=== PATIENT | male | born 1970 | race Caucasian/White ===

== ENCOUNTER 2022-11-07 17:05 | Emergency (ER) | payer OTHER, SELFPAY ==
[2022-11-07] VITALS (15 sets, daily range): BP systolic 119–141; BP diastolic 67–83; PULSE 60–72; RESP 12–21; TEMP 36.4; O2SAT 89–96
--- NOTE | ~2022-11-07 | XR_ITS ---
Clinical Indication: Chest pain PA and lateral views of the chest: Comparison: 05/28/2019 Findings: The lungs are clear, without evidence of focal consolidation or pleural effusion. Cardiome diastinal silhouette is within normal limits. Stable calcified right hilar lymph node. Bones and soft tissues are unremarkable. Impression: No acute abnormality. Stable calcified right hilar lymph node. Reviewed, dictated and finalized at location . Impression: No acute abnormality. Stable calcified right hilar lymph node.
--- NOTE | 2022-11-07 17:06 | ECG_ITS ---
Measurements Intervals [place] Rate: 66 P: 37 TX: 141 QRS: -33 QRSD: 94 T: 8 QT: 372 QTc: 390 Interpretive Statements SINUS RHYTHM LEFT AXIS DEVIATION [QRS AXIS < -30] PATTERN CONSISTENT WITH PULMONARY DISEASE ABNORMAL ECG NO PREVIOUS ECG AVAILABLE FOR COMPARISON Electronically Signed On 11-08-2022 10:18:42 CDT by Juan Carlos Dai M.D.
[2022-11-07 17:39] LABS: Basophils Percent Auto 0.4 % (0.2-1.2); Eosinophils Absolute Auto 0.2 K/mm3 (0-0.3); Eosinophils Percent Auto 2.3 % (0-4.4); Hematocrit 42.1 % (42.0-52.0); Hemoglobin 14.3 g/dL (14.0-18.0); Immature Granulocyte Absolute 0.02 K/mm3 (0.00-0.031); Immature Granulocyte Percent A 0.3 % (0-0.5); Lymphocytes Absolute Auto 2.67 K/mm3 (0.9-3.2); Lymphocytes Percent Auto 34.7 % (18.3-44.2); Mean Corpuscular Hemoglobin 32.1 pg (26-34); Mean Corpuscular Volume 94.4 fl (80-100); Mean Platelet Volume 9.7 fl (7.4-10.4); Monocytes Absolute Auto 0.6 K/mm3 (0.1-0.6); Monocytes Percent Auto 7.7 % (2.6-8.5); Neutrophils Absolute Auto 4.2 K/mm3 (1.3-6.7); Neutrophils Percent Auto 54.6 % (45.5-73.1); Platelet Count Result 253 k/mm3 (150-375); Red Blood Count 4.46 M/mm3 (4.6-6.20); Red Cell Distribution Width 12.7 % (11.5-14.5); White Blood Count 7.7 K/mm3 (4.5-10.0)
--- NOTE | 2022-11-07 17:43 | ED.CHESTPAIN ---
HPI - Chest Pain General Chief Complaint: Chest Pain Stated Complaint: L sided chest pain Time Seen by Provider: 11/07/22 17:22 Source: patient Mode of arrival: ambulatory Limitations: no limitations History of Present Illness HPI narrative: This is a 51 year old male with PMHx of depression who presents to the ED with chief complaint of chest pain beginning 2 days ago and worse today. Pt states the pain is in the left chest and radiates to the left shoulder and left neck. Pt states the pain is more constant today so he came in. States the pain came on while he was sitting in his home. No worse with exertion. Reports an episode of feeling clammy and nausea this morning since resolved. Denies LOC, vomiting, SOB, cough, fevers, abdominal pain. Denies any chest pain Hx. Denies any family Hx of major cardiac events. Related Data Allergies Allergy/AdvReac Type Severity Reaction Status Date / Time No Known Allergies Allergy Verified 11/07/22 18:32 Review of Systems Review of Systems: CONSTITUTIONAL: Denies fever, chills, or sweats. EYES: Denies visual changes, redness, or discharge. ENT: Denies rhinorrhea, congestion, sore throat, or otalgia. CARDIOVASCULAR: See HPI RESPIRATORY: Denies cough or dyspnea. GASTROINTESTINAL: Denies abdominal pain, nausea, vomiting, or diarrhea. GENITOURINARY: Denies dysuria or hematuria. SKIN: Denies rash or itching. MUSCULOSKELETAL: Denies back pain, joint pain, or myalgia. NEUROLOGIC: Denies headache, numbness, dizziness, or weakness. PSYCHIATRIC: Denies anxiety or depression. [facility] Past Medical History Medical History Anemia Depression Seasonal allergies Surgical History Surgical History History of appendectomy 01/1991 Family History Family History Grandparent Cerebrovascular accident Family history of congestive heart failure Social History Social History Smoking status: Former smoker Smoking end date: 01/04/02 Alcohol intake: current Drinks per week: 1 Substance use: never Substance use type: does not use Living arrangements: with family Occupation/Education: occupation Gender identity (if verbalized by the patient): Male Sexual Orientation (if Verbalized by the Patient): Straight or Heterosexual Agree to blood products: Yes Exam Narrative: GENERAL: Well-appearing, well-nourished, and in no acute distress. HEAD: Normocephalic, atraumatic. EYES: PERRLA and EOMI. ENT: Nares clear, no rhinorrhea or epistaxis. Mucous membranes moist. Oropharynx without tonsillar hypertrophy exudate or other lesions. NECK: Supple. No adenopathy or masses. CHEST: No respiratory distress. Clear to auscultation. No wheezes rales or rhonchi HEART: Regular rate and rhythm. No murmur heard. Normal peripheral pulses. ABDOMEN: Soft, nontender, nondistended, normal active bowel sounds. MSK: Normal range of motion. No edema. SKIN: Warm, dry, no rash. NEURO: Alert and oriented x3. No focal deficits. PSYCH: Normal mood and affect. Course Course Emergency Course: Patient is declining pain meds at this point. States it is a very low-grade pain and he does not need anything for pain. Vital Signs Vital signs: Vital Signs Temperature 97.5 F L 11/07/22 17:07 Pulse Rate 70 11/07/22 17:07 Respiratory Rate 16 11/07/22 17:07 Blood Pressure 141/70 H 11/07/22 17:07 Pulse Oximetry 95 11/07/22 17:07 Oxygen Delivery Room Air 11/07/22 17:07 Temperature 97.5 F L 11/07/22 17:07 Pulse Rate 66 11/07/22 21:01 Respiratory Rate 17 11/07/22 21:01 Blood Pressure 131/81 11/07/22 21:01 Pulse Oximetry 95 11/07/22 20:47 Oxygen Delivery Room Air 11/07/22 18:09 MDM - Chest Pain MDM Narrative Medical decision making narr
[2022-11-07 17:48] LABS: Alanine Aminotransferase 29 U/L (6-50); Alkaline Phosphatase 78 U/L (38-126); Anion Gap 2 mmol/L (8-16); Aspartate Amino Transferase 30 U/L (17-59); Bilirubin,Total 0.3 mg/dL (0.2-1.3); Blood Urea Nitrogen 24 mg/dL (9-20); Calcium 8.8 mg/dL (8.4-10.2); Carbon Dioxide 33 mmol/L (22-30); Chloride 102 mmol/L (98-107); Estimated CRCL calculation 83 ml/min; Estimated Glomerular Filt Rate 58; Glucose 101 mg/dL (65-110); Lipase 34 U/L (23-300); Potassium 4.1 mmol/L (3.4-5.0); Sodium 137 mmol/L (137-145)
[2022-11-07 17:52] LABS: Prothrombin Time 13.7 Seconds (11.1-14.7)
[2022-11-07 17:53] LABS: Partial Thromboplastin Time 26.3 SECONDS (22.3-36.8)
[2022-11-07 17:55] LABS: D Dimer < 0.27 ug/mL (<0.48)
[2022-11-07 18:00] LABS: Troponin I < 0.012 ng/mL (0.000-0.034)
[2022-11-07] MEDS: ASPIRIN 81 MG CHEWABLE TABLET 324 MG PO (18:01)
--- NOTE | 2022-11-07 19:15 | PC.NURSE ---
This RN assumed care of patient.
[2022-11-07 20:34] LABS: Troponin I < 0.012 ng/mL (0.000-0.034)
== END 2022-11-07 21:23 | disposition home or self-care (01) ==
PROVIDERS: Emergency Medicine; Emergency Provider Physician Assistant; PCP Family Medicine
DX: R07.9 Chest pain, unspecified (principal); Z87.891 Personal history of nicotine dependence
CPT/HCPCS: 36415; 71046; 80053; 83690; 84484; 85025; 85380; 85610; 85730; 93005; 99284; A9270

== ENCOUNTER 2022-12-13 08:44 | Outpatient (CLI) | payer OTHER, SELFPAY ==
--- NOTE | ~2022-12-13 | NM_ITS ---
EXAMINATION: NM stress w perf spect multi DATE: 12/13/2022 11:04 INDICATION: Chest pain TECHNIQUE: Rest images were obtained following intravenous administration of 10.5 mCi Tc99m tetrofosm in (MiCarga). The patient performed an exercise activity. At peak exercise, 33.2 mCi Tc99m tetrofosmi n (AdvanDxview) was administered intravenously, and stress images were obtained. Data was reconstructed i nto short axis and horizontal and vertical long axis SPECT images. Gated SPECT images were also obtai katy. COMPARISON: None. FINDINGS: There is normal left ventricular perfusion without definite evidence of reversible or fixed perfusion abnormality to suggest ischemia or infarction. There is normal left ventricular chamber size, wall motion and ejection fraction. Left ventricular ejection fraction measures >70%. IMPRESSION: 1. Normal myocardial perfusion at rest and during stress. 2. Left ventricular ejection fraction measuring >70%. Reviewed, dictated and finalized at location A.
--- NOTE | 2022-12-13 08:50 | EST_ITS ---
Patient Info Name: Franklyn Buck Age: 52 years : 1970 Gender: Male Ht: 75 in Wt: 250 lbs BSA: 2.48 m2 HR: 68 bpm BP: 125 / 78 mmHg Heart Rhythm: Sinus Rhythm Exam Date: 12/13/2022 9:54 AM Exam Location: [facility] Stress Patient Status: Outpatient Admit Date: 12/13/2022 Staff Ordering Physician: Vida Roslaes MD Attending Provider: Vida Rosales MD Exercise Technologist: Cece Blunt CT Exercise Physician: Lennox Willams DO Exam Type: CA stress test treadmill w NM Study Info Indications R07.89 - Other chest pain A nuclear stress test was performed. Summary 1. 1. Negative Baljinder exercise stress test for ischemic ST changes by ECG criteria. 2. 2. Good functional capacity, achieving 12 METs of workload. 3. 3. Appropriate HR response to exercise. 4. 4. Appropriate HR recovery at 1 minute post exercise. 5. 5. Nuclear scan to follow and will be reported separately. Please correlate with it. 6. 6. Patient informed of the above results. Protocol: Baljinder Stress ECG Details Stage: REST Duration (min): 0 min : 58 sec Speed (mph): 0.0 Grade (%): 0 HR (bpm): 69 SBP (mmHg): 125 DBP (mmHg): 78 METS: --- Stage: REST Duration (min): 5 min : 58 sec Speed (mph): 0.0 Grade (%): 0 HR (bpm): 74 SBP (mmHg): 125 DBP (mmHg): 78 METS: --- Stage: STAGE 1 Duration (min): 1 min : 0 sec Speed (mph): 1.7 Grade (%): 10 HR (bpm): 89 SBP (mmHg): 125 DBP (mmHg): 78 METS: --- Stage: STAGE 1 Duration (min): 2 min : 0 sec Speed (mph): 1.7 Grade (%): 10 HR (bpm): 94 SBP (mmHg): 125 DBP (mmHg): 78 METS: --- Stage: STAGE 1 Duration (min): 3 min : 0 sec Speed (mph): 1.7 Grade (%): 10 HR (bpm): 97 SBP (mmHg): 150 DBP (mmHg): 82 METS: --- Stage: STAGE 2 Duration (min): 1 min : 0 sec Speed (mph): 2.5 Grade (%): 12 HR (bpm): 107 SBP (mmHg): 150 DBP (mmHg): 82 METS: --- Stage: STAGE 2 Duration (min): 2 min : 0 sec Speed (mph): 2.5 Grade (%): 12 HR (bpm): 112 SBP (mmHg): 155 DBP (mmHg): 72 METS: --- Stage: STAGE 2 Duration (min): 3 min : 0 sec Speed (mph): 2.5 Grade (%): 12 HR (bpm): 108 SBP (mmHg): 155 DBP (mmHg): 72 METS: --- Stage: STAGE 3 Duration (min): 1 min : 0 sec Speed (mph): 3.4 Grade (%): 14 HR (bpm): 127 SBP (mmHg): 156 DBP (mmHg): 45 METS: --- Stage: STAGE 3 Duration (min): 2 min : 0 sec Speed (mph): 3.4 Grade (%): 14 HR (bpm): 134 SBP (mmHg): 156 DBP (mmHg): 45 METS: --- Stage: STAGE 3 Duration (min): 3 min : 0 sec Speed (mph): 3.4 Grade (%): 14 HR (bpm): 141 SBP (mmHg): 180 DBP (mmHg): 76 METS: --- Stage: STAGE 4 Duration (min): 1 min : 0 sec Speed (mph): 4.2 Grade (%): 16 HR (bpm): 149 SBP (mmHg): 180 DBP (mmHg): 76 METS: --- Stage: STAGE 4 Duration (min): 1 min : 20 sec Speed (mph): 4.2 Grade (%): 16 HR (bpm): 15
== END 2022-12-13 08:45 | disposition home or self-care (01) ==
PROVIDERS: PCP Family Medicine; Visit Provider Family Medicine
DX: R07.89 Other chest pain (principal)
CPT/HCPCS: 78452; 93017; A9502

== ENCOUNTER 2023-02-17 09:43 | Outpatient (CLI) | payer OTHER, SELFPAY ==
--- NOTE | 2023-03-14 15:24 | WPDSLEEPSTUD ---
Sleep Study Date of Study: 02/17/23 Ordering Provider: Kimberly Marinelli APRN Interpreting Physician: Supriya Sommer DO Sleep Study Type: CPAP Titration Height: 1.91 m Weight: 113.398 kg Body Mass Index: 31.2 Neck Circumference (inches): 16 [place]: 8 Reason for Sleep Study The patient had a sleep study done through his dentist on 09/21/2022 that showed an overall AHI of 22 (CMS guidelines- 4%) and AHI of 34 (AASM guidelines-3%). His lowest oxygen saturation was 70% and he spent 24 minutes, 8% of total monitoring time, with an oxygen saturation below 88%. He prefers to try CPAP over mandibular advancement device. Sleep History The patient is a 52-year-old male that had a sleep study ordered by his primary care to find an optimal PAP setting to treat his sleep apnea. The patient frequently awakens from sleep short of breath. He rarely awakens at night with heartburn, belching or cough. He frequently snores and is frequently loud enough that others complain. He rarely has trouble sleeping when he has a cold. He frequently wakes up gasping for air throughout the night. He frequently has breathing problems at night observed by himself or others. He rarely sweats excessively at night. He rarely has heart palpitations or irregular heartbeats during the night. He rarely falls asleep during the day. He rarely falls asleep while driving. He denies sleep paralysis, cataplexy and hypnagogic / hypnopompic hallucinations. He denies having trouble at school or work due to sleepiness. He denies feeling afraid of going to sleep. He rarely has nightmares. He occasionally remembers his dreams. He rarely has thoughts racing through his mind. He rarely feels sad, depressed or anxious. He occasionally has muscular tension. He rarely notices parts of his body jerk. He rarely kicks during the night. He denies having crawling and aching feelings in his legs and denies having leg pain during the night. He frequently grinds his teeth during sleep per his dentist but denies awakening with morning jaw pain. He denies being bothered by pain during the day. He rarely is awakened by pain during the night. He occasionally wakes up feeling stiff in the morning. He denies waking up with sore or achy muscles. He denies waking up with pain in the neck, spine or other joints. He goes to bed between 11 to 11:30 p.m. on weekdays and between midnight to 12:30 a.m. on the weekends. It takes him less than 10 minutes to fall asleep. He wakes up 1-4 times throughout the night to urinate and is able fall back asleep within 10 minutes. He wakes up at 7:00 a.m. on weekdays and at 9:00 a.m. on the weekends. He typically gets 7 hours of sleep per night. He will stay in bed for 5-30 minutes after waking up in the morning. He currently lives with his . He denies consuming any caffeinated beverages within 2 hours of bedtime. He will engage in physical exercise before bedtime. He will read before falling asleep. He denies watching television before falling asleep. He denies taking naps in the afternoon or the evening. He consumes 3-4 caffeinated beverages per day. He quit smoking cigarettes over 30 years ago. He will consume an alcoholic beverage occasionally. He denies recreational drug use. [facility] Past Medical History Medical History Anemia Depression Seasonal allergies Surgical History Surgical History History of appendectomy 01/1991 Family History Family History Grandparent Cerebrovascular accident Family history of congestive heart failure Social History Social History Smoking status: Former smoker Smoking end date: 01/04/02 Alcohol intake: current Drinks per week: 1 Substance use: never Substance use t
[2023-03-14 15:29] VITALS: BMI 31.2
== END 2023-02-18 07:07 | disposition home or self-care (01) ==
LOC: ANHCSM 09:44
PROVIDERS: PCP Family Medicine; Visit Provider Nurse Practitioner Family
DX: G47.33 Obstructive sleep apnea (adult) (pediatric) (principal)
CPT/HCPCS: 95811

== ENCOUNTER 2024-09-28 15:18 | Emergency (ER) | payer BC, SELFPAY ==
[2024-09-28 15:26] VITALS: BP 122/77; PULSE 69; RESP 16; TEMP 36.6; O2SAT 94
--- NOTE | 2024-09-28 15:44 | ED.URI ---
HPI - URI/Sore Throat General Chief Complaint: Upper Respiratory Infection Stated Complaint: COUGH Time Seen by Provider: 09/28/24 15:47 Source: patient and RN notes reviewed Mode of arrival: ambulatory Limitations: no limitations History of Present Illness HPI Narrative: 53-year-old male presents with concern for 2 week history of cough. Reports symptoms started 2 weeks ago with runny nose, stuffy nose, cough, fever. Most symptoms have resolved but he continues to have cough. He has been taking NyQuil at night. MD elicited complaint: cough Related Data Allergies Allergy/AdvReac Type Severity Reaction Status Date / Time No Known Allergies Allergy Verified 09/28/24 15:23 Review of Systems Review of Systems: CONSTITUTIONAL: Reports malaise. Denies chills, sweats, or fever. EYES: Denies visual changes, redness, or discharge. ENT: Denies rhinorrhea, congestion, sinus pain, otalgia and sore throat. CARDIOVASCULAR: Denies chest pain, palpitations, or edema. RESPIRATORY: Reports productive cough. Denies dyspnea. GASTROINTESTINAL: Denies abdominal pain, nausea, vomiting, diarrhea SKIN: Denies rash or itching. MUSCULOSKELETAL: Denies myalgia. NEUROLOGIC: Denies headache. All systems reviewed & are unremarkable except as noted in HPI and below PMFSH Past Medical History Medical History Anemia Depression Seasonal allergies Surgical History Surgical History History of appendectomy 01/1991 Family History Family History Grandparent Cerebrovascular accident Family history of congestive heart failure Social History Social History Smoking status: Former smoker Smoking end date: 01/04/02 Alcohol intake: current Drinks per week: 1 Substance use: never Substance use type: does not use Lack of Transportation: No Lack of Food: Never True Current Housing: I Have Housing Concerned About Future Housing: No Difficulty Paying Gas/Electric Bills: No Difficulty Paying for Meds: No Currently Unemployed: No Education: Bachelor's Degree Difficulty w/ Childcare or Family Care: No Living arrangements: with family Occupation/Education: occupation Gender identity (if verbalized by the patient): Male Sexual Orientation (if Verbalized by the Patient): Straight or Heterosexual Agree to blood products: Yes Comments At time of signature, agree with nursing past medical, surgical, social and family history. There is no relevant family history pertinent to the presenting complaint Exam Narrative: GENERAL: Well-appearing, well-nourished, and in no acute distress. HEAD: Normocephalic EYES: PERRLA, conjunctivae clear ENT: Nares clear. Mucous membranes moist. TM pearly sun with dull light reflex bilaterally; no tragal tenderness. Oropharynx not erythematous without lesions. Tonsils not enlarged and without exudate, no drooling, no hoarseness, no trismus, uvula midline. NECK: Supple. No lymphadenopathy CHEST: Clear to auscultation, breath sounds equal. No wheezing, rhonchi, rales, or stridor. No respiratory distress, speaks in full sentences. Cough noted HEART: Regular rate and rhythm. No murmur heard. SKIN: Warm, dry, no rash. NEURO: Alert and oriented x3. PSYCH: Normal mood and affect Course Course Emergency Course: Patient is aware of diagnosis, understands and agrees to treatment plan. Anticipatory guidance given. Patient agrees to follow-up as directed and is aware of reasons to seek care at the emergency department. Portions of this record may have been created with voice recognition software Level of Care: Express Care Visit Vital Signs Vital signs: Vital Signs Temperature 97.8 F 09/28/24 15:26 Pulse Rate 69 09/28/24 15:26 Respiratory Rate 16 09/28/24 15:26 Blood Pressure 122/77 09/28/24 15:26 Pulse Oximetry 94 09/28/24 15:26 Temperature 97.8 F 09/28/24 15:26 Pulse Rate 69 09/28/24 15:26 Respiratory Rate 16 09/28/24 15:26 Blood Pressure 122/77 09/28/24 15:26 Pulse Oximetry 94 09/28/24 15:26 Reviewed. MDM - URI/Sore Throat MDM Narrative Medical decision making narrative: Differential diagnosis considered: Workman virus, strep pharyngitis, allergic rhinitis, upper respiratory tract infection, sinusitis, rhinosinusitis, nasopharyngitis. viral pharyngitis, otitis media, otitis externa, pneumonia, bronchitis, viral cough syndrome, viral syndrome, and influenza. Exam findings show no acute concerns or changes; patient is non-toxic appearing and is in no distress. Patient is appropriate for outpatient treatment and follow-up. Lab Data Attestation: I reviewed the patient's lab results. Critical Care Time Critical Care Time Critical Care Time: No Discharge Plan Discharge Clinical Impression: Lower respiratory tract infection Patient Disposition: Home Condition: Stable Instructions: Antibiotic Form, Acute Cough (ED) Additional Instructions: 1) Please follow-up with your primary care doctor in the next 1-2 days. 2) If you have any worsening of symptoms or any other urgent concerns please go to the ER. 3) Please take medications as prescribed and continue taking your home medications as usual. 4) Please read and follow information included in discharge instructions. Patient Language: Kuwaiti Prescriptions: New azithromycin [Zithromax Z-Mello] 250 mg tablet See Rx Instructions .ROUTE .COMPLEX Qty: 6 0RF Rx Instructions: take 500 mg today (day 1), then 250 mg for 4 days (days 2-5) methylprednisolone [Medrol (Mello)] 4 mg tablets,dose pack See Rx Instructions .ROUTE .COMPLEX Qty: 21 0RF Rx Instructions: orally per package directions No Action bupropion HCl [Wellbutrin XL] 150 mg tablet extended release 24 hr 450 mg PO QAM Qty: 270 1RF Follow-up/Referrals: Vida Rosales MD [Primary Care Provider] - Time of Disposition: 15:54
== END 2024-09-28 15:56 | disposition home or self-care (01) ==
PROVIDERS: Emergency Provider Nurse Practitioner; PCP Family Medicine
DX: J22 Unspecified acute lower respiratory infection (principal); Z87.891 Personal history of nicotine dependence
CPT/HCPCS: 99213; G0463